=== PATIENT | female | born 1935 | race Caucasian/White ===

== ENCOUNTER → 2016-07-09 | Outpatient (CLI) | payer OTHER ==
--- NOTE | 2016-07-09 12:16 | DIAGNOSTIC IMAGING REPORT ---
LUMBAR SPINE 5 VIEWS CLINICAL HISTORY: Chronic low back pain. FINDINGS: Five views of the lumbar spine are compared to study dated 06/05/2014. The skeletal structures are osteopenic. There is no radiographic evidence of fracture or malalignment. Vertebral body height is maintained of the lumbar spine. Again seen is 9 mm of anterolisthesis at L4-L5. Minimal retrolisthesis is seen at L2-L3. Alignment is otherwise preserved. Lumbar dextrocurvature is centered at L3. There are anterior and lateral marginal osteophytes seen throughout. The transverse and spinous processes appear intact. There is no evidence of spondylolysis. Moderate facet arthropathy is seen in the mid to lower lumbar spine. Moderate degenerative disc space narrowing is seen at L4-L5 with associated endplate sclerosis. Mild to moderate disc space narrowing is seen at the remaining lumbar levels. The bony pelvis is intact as imaged. Mild sclerotic change is noted in the sacroiliac joints. There is a nonobstructed abdominal bowel gas pattern. Vascular calcifications are noted in the pelvis. There is mild atherosclerotic calcification of the abdominal aorta. IMPRESSION: 1. No acute bony abnormality is seen involving the lumbosacral spine. 2. Osteopenia with lumbosacral spondylosis and scoliosis as above. This appears modestly progressed from the 2014 examination. Dictated: 07/09/2016 10:36 AM Transcribed: 07/09/2016 12:16 PM [email or web address] Electronically signed by: Aiden Joyner M.D. 07/09/2016 12:25 PM Dictated Date/Time: 07/09/2016 10:36 AM
== END | disposition home or self-care (01) ==
LOC: C.RAD 10:14
PROVIDERS: ATTEND Internal Medicine
DX: M54.5 Low back pain (principal); M85.80 Other specified disorders of bone density and structure, unspecified site; M47.897 Other spondylosis, lumbosacral region; M41.9 Scoliosis, unspecified

== ENCOUNTER → 2016-07-09 | Outpatient (CLI) | payer OTHER ==
[2016-07-09 12:33] LABS: ALT/SGPT 17 U/L (12-78); BLOOD UREA NITROGEN 18 mg/dl (7-18); BUN/CREATININE RATIO 20.9 (10-20); CALCIUM 8.6 mg/dl (8.5-10.1); CARBON DIOXIDE 26 mmol/L (21-32); CHLORIDE 107 mmol/L (98-107); CHOLESTEROL 185 mg/dl (0-200); CREATININE 0.86 mg/dl (0.60-1.20); GLUCOSE 100 mg/dl (70-99); POTASSIUM 4.1 mmol/L (3.5-5.1); SODIUM 143 mmol/L (136-145); TRIGLYCERIDES 136 mg/dl (0-150); VERY LOW DENSITY LIPOPROT CALC 27 mg/dl
[2016-07-09 12:37] LABS: ESTIMATED AVERAGE GLUCOSE 134 mg/dl; HA1C FLAG Normal (Normal)
[2016-07-09 12:44] LABS: ALKALINE PHOSPHATASE 100 U/L (45-117); AST/SGOT 14 U/L (15-37); CHOLESTEROL/HDL RATIO 2.5; HDL CHOLESTEROL 74 mg/dl; LDL CHOLESTEROL CALCULATED 84 mg/dl
== END | disposition home or self-care (01) ==
LOC: C.LABBFT 08:25
PROVIDERS: ATTEND Internal Medicine
DX: E03.9 Hypothyroidism, unspecified (principal); E11.9 Type 2 diabetes mellitus without complications; E78.5 Hyperlipidemia, unspecified; M54.5 Low back pain; M85.80 Other specified disorders of bone density and structure, unspecified site; M47.897 Other spondylosis, lumbosacral region; M41.9 Scoliosis, unspecified

== ENCOUNTER → 2017-02-07 | Outpatient (CLI) | payer OTHER ==
[2017-02-07 12:13] LABS: HEMATOCRIT 42.5 % (37-47); MEAN CELL VOLUME 89.3 fL (80-100); MEAN CORPUSCULAR HEMOGLOBIN 28.8 pg (25-34); MEAN CORPUSCULAR HGB CONC 32.2 g/dl (32-36); MEAN PLATELET VOLUME 10.9 fL (7.4-10.4); PLATELET COUNT 248 K/uL (130-400); RED BLOOD COUNT 4.76 M/uL (4.2-5.4); WHITE BLOOD COUNT 8.17 K/uL (4.8-10.8)
[2017-02-07 12:39] LABS: ESTIMATED AVERAGE GLUCOSE 140 mg/dl; HA1C FLAG Normal (Normal)
[2017-02-07 12:44] LABS: ALT/SGPT 17 U/L (12-78); AST/SGOT 15 U/L (15-37); BLOOD UREA NITROGEN 16 mg/dl (7-18); BUN/CREATININE RATIO 20.5 (10-20); CALCIUM 8.7 mg/dl (8.5-10.1); CARBON DIOXIDE 27 mmol/L (21-32); CHLORIDE 107 mmol/L (98-107); CREATININE 0.77 mg/dl (0.60-1.20); GLUCOSE 103 mg/dl (70-99); POTASSIUM 4.4 mmol/L (3.5-5.1); SODIUM 142 mmol/L (136-145); TRIGLYCERIDES 174 mg/dl (0-150); VERY LOW DENSITY LIPOPROT CALC 35 mg/dl
[2017-02-07 12:55] LABS: ALKALINE PHOSPHATASE 107 U/L (45-117); CHOLESTEROL 180 mg/dl (0-200); CHOLESTEROL/HDL RATIO 2.5; HDL CHOLESTEROL 71 mg/dl; LDL CHOLESTEROL CALCULATED 74 mg/dl; THYROID STIMULATING HORMONE 0.247 uIu/ml (0.300-4.500)
== END | disposition home or self-care (01) ==
LOC: C.LABBFT 08:28
PROVIDERS: ATTEND Internal Medicine
DX: E11.9 Type 2 diabetes mellitus without complications (principal)

== ENCOUNTER → 2017-02-14 | Outpatient (CLI) | payer OTHER | END | disposition home or self-care (01) | LOC: C.LABBFT 12:47 | PROVIDERS: ATTEND Internal Medicine | DX: E11.9 Type 2 diabetes mellitus without complications (principal) ==

== ENCOUNTER → 2017-10-13 | Outpatient (CLI) | payer OTHER ==
[2017-10-13 13:01] LABS: HEMOGLOBIN A1C 6.4 % (4.5-5.6)
[2017-10-13 13:34] LABS: ALBUMIN 3.4 gm/dl (3.4-5.0); ALT/SGPT 20 U/L (12-78); AST/SGOT 14 U/L (15-37); BLOOD UREA NITROGEN 17 mg/dl (7-18); CARBON DIOXIDE 29 mmol/L (21-32); GLUCOSE 104 mg/dl (70-99); POTASSIUM 4.1 mmol/L (3.5-5.1); SODIUM 138 mmol/L (136-145)
[2017-10-13 13:44] LABS: ALKALINE PHOSPHATASE 112 U/L (45-117); CHOLESTEROL 190 mg/dl (0-200); LDL CHOLESTEROL CALCULATED 87 mg/dl; TOTAL PROTEIN 6.8 gm/dl (6.4-8.2)
== END | disposition home or self-care (01) ==
LOC: C.LABBFT 08:39
PROVIDERS: ATTEND Internal Medicine
DX: E11.9 Type 2 diabetes mellitus without complications (principal)